=== PATIENT | male | born 2000 | race Caucasian/White ===

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

== ENCOUNTER 2020-12-09 11:19 | Emergency (ER) | payer OTHER, SELFPAY ==
[2020-12-09 11:21] VITALS: BP 128/83; PULSE 81; RESP 14; TEMP 35.7; O2SAT 97; BMI 33.0
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
--- NOTE | 2020-12-09 12:43 | RAD_ITS ---
STUDY: X-RAY - CERVICAL SPINE REASON FOR EXAM: Male, 20 years old. neck paib TECHNIQUE: view(s) of the cervical spine were obtained. COMPARISON: None FINDINGS: Normal anterior atlantoaxial articulation. Normal odontoid process. Normal cervical lordosis. Normal vertebral bodies and endplates. Normal disc space heights. Normal visualized intervertebral neuroforamina. The soft tissue structures are unremarkable. RAD/Cerv Spine 2 or 3 Views IMPRESSION: Normal x-ray examination of the visualized cervical spine. Electronically Signed: Siddhartha Hickman, at 13:07 EDT Tel , Service support ,
[2020-12-09 13:22] VITALS: RESP 18
== END 2020-12-09 13:23 | disposition home or self-care (01) ==
PROVIDERS: Emergency Provider Student in an Organized Health Care Education/Training Program; PCP Physician Assistant
DX: S16.1XXA Strain of muscle, fascia and tendon at neck level, initial encounter (principal); V49.9XXA Car occupant (driver) (passenger) injured in unspecified traffic accident, initial encounter
CPT/HCPCS: 72040; 99284

== ENCOUNTER 2021-10-28 16:13 | Emergency (ER) | payer OTHER, SELFPAY ==
[2021-10-28 16:16] VITALS: BP 158/102; PULSE 89; RESP 17; TEMP 37.2; O2SAT 96; BMI 38.5
--- NOTE | 2021-10-28 16:36 | EDS_ITS ---
HPI HPI - Psych History of Present Illness Chief Complaint: Suicidal Narrative Narrative: Patient with past medical history of depression and anxiety presents with hallucinations and suicidal ideation that have increased over time. He relates history that he has had hallucinations that are auditory in nature telling him to harm himself over the last 5 years, but never acted on them or told anyone about them. He went to see his primary care provider today and stated that he has had increased suicidal ideation. He states the worst was Monday, 5 days ago. He has made reported suicidal gestures by taking an unloaded gun and holding it to his head. He denies any previous psychiatric admissions. He lives at home with his parents and his fianc?e. He endorses decreased appetite, decreased sleep patterns, and endorses anhedonia. He is to play video games and enjoys it, but finds he is becoming bored with this past time. He presents because he needs help for his depression and suicidal ideation. PFSH PFS Home Medications cyclobenzaprine 10 mg PO TID PRN #20 tablet 12/09/20 [Rx Last Taken Unknown] Allergy/AdvReac Type Severity Reaction Status Date / Time No Known Allergies Allergy Verified 10/28/21 16:13 Surgical History History of open heart surgery Social History Smoking Status: Never smoker ROS ROS ED ROS Narrative Constitutional: No fever, no chills. HEENT: No sore throat. No neck pain. No loss of vision. No rhinorrhea. Cardiovascular: No chest pain. No palpitations. No pedal edema. Respiratory: No cough, no shortness of breath. Abdominal: No abdominal pain. No nausea. No vomiting. Genitourinary: No dysuria. No hematuria. Musculoskeletal: No myalgias. No arthralgias. Neurologic: No headaches. No dizziness. No lightheadedness. Skin: No rash. No change in color. Psychiatric: Positive depression. No anxiety. Positive hallucinations, auditory. Positive anhedonia. Decreased appetite. Decreased sleep/positive insomnia. EXAM Physical Exam Narrative Exam Narrative: Afebrile. Vital signs noted. HEENT: Normocephalic. Atraumatic. PERRL, EOMI. Neck soft and supple. No point tenderness or step off. Cardiovascular: Regular rate and rhythm. No murmurs, rubs, or gallops appreciated. Respiratory: No tachypnea. Lungs clear to auscultation bilaterally. Gastrointestinal: Abdomen soft, nontender, with normoactive bowel sounds. No rebound or guarding. Neurological: Awake. Alert. Nonfocal, nonlateralizing. Skin: No rash. Normal color. No pallor. Musculoskeletal: No pedal edema. Full range of motion extremities. Const Vital Signs: 10/28/21 16:16 10/28/21 19:13 Temperature 99.0 F Temperature Source Temporal Pulse Rate 89 78 Respiratory Rate 17 14 Blood Pressure 158/102 H 118/78 Blood Pressure Mean 120 91 Pulse Ox 96 100 Oxygen Delivery Method Room Air Room Air MDM MDM MDM Narrative Medical decision making narrative: Medical clearance labs were obtained. Given his auditory hallucinations, increasing depression, and suicidal gestures I do feel that he needs placement at a psychiatric facility. He has a normal CBC, BMP is also grossly unremarkable. Urine for drugs of abuse is negative. Alcohol level is also that he is medically cleared for evaluation. His EKG had demonstrated normal sinus rhythm at 83 bpm without ectopy or acute ST changes. After evaluation by case management/social work, it was felt that he required transfer to a psychiatric facility. He has been accepted at [facility] for psychiatry. He will be transferred in stable condition. Lab Data Attestation: I reviewed the patient's lab results. Labs: Laboratory Results - last 24 hr 10/28/21 10/28/21 10/28/21 16:40 16:55 16:55 WBC 10.2 RBC 5.49 Hgb 15.9 Hct 46.0 MCV 83.8 MCH 29.0 MCHC 34.6 RDW Std Deviation 40.5 RDW Coeff of Breanna 13.3 Plt Count 316 MPV 9.5 Immature Gran % (Auto) 0.800 Neut % (Auto) 60.8 Lymph % (Auto) 26.3 [place] % (Auto) 7.3 Eos % (Auto) 4.1 Baso % (Auto) 0.7 Absolute Neuts (auto) 6.2 Absolute Lymphs (auto) 2.67 Nucleated RBC % 0 Sodium 138 Potassium 3.8 Chloride 107 Carbon Dioxide 26.0 Anion Gap 5 BUN 12 Creatinine 0.82 Estim Creat Clear Calc 133.23 Est GFR (MDRD) Af Amer 152 Est GFR (MDRD) Non-Af 125 BUN/Creatinine Ratio 14.7 Glucose 89 Calcium 9.4 Urine Opiates Screen NEGATIVE Urine Methadone Screen NEGATIVE Ur Barbiturates Screen NEGATIVE Ur Phencyclidine Scrn NEGATIVE Ur Amphetamines Screen NEGATIVE MDMA (Ecstasy) Screen NEGATIVE U Benzodiazepines Scrn NEGATIVE Urine Cocaine Screen NEGATIVE U Cannabinoids Screen NEGATIVE Ur Drug Screen Comment Ethyl Alcohol 10/28/21 16:55 WBC RBC Hgb Hct MCV MCH MCHC RDW Std Deviation RDW Coeff of Breanna Plt Count MPV Immature Gran % (Auto) Neut % (Auto) Lymph % (Auto) [place] % (Auto) Eos % (Auto) Baso % (Auto) Absolute Neuts (auto) Absolute Lymphs (auto) Nucleated RBC % Sodium Potassium Chloride Carbon Dioxide Anion Gap BUN Creatinine Estim Creat Clear Calc Est GFR (MDRD) Af Amer Est GFR (MDRD) Non-Af BUN/Creatinine Ratio Glucose Calcium Urine Opiates Screen Urine Methadone Screen Ur Barbiturates Screen Ur Phencyclidine Scrn Ur Amphetamines Screen MDMA (Ecstasy) Screen U Benzodiazepines Scrn Urine Cocaine Screen U Cannabinoids Screen Ur Drug Screen Comment Ethyl Alcohol < 3.0 Discharge Plan Triage Chief Complaint: Suicidal ED Provider: Demetris Mora Dx/Rx/DC Orders Clinical Impression: Depression with suicidal ideation, Auditory hallucinations, Suicide gesture Prescriptions: No Action cyclobenzaprine 10 mg tablet 10 mg PO TID PRN (Reason: Muscle Spasm) Qty: 20 RF: 0 Primary Care Provider: Elly Mary Referrals: Elly Mary PA [Primary Care Provider] - Disposition Disposition: Psychiatric Hospital or Unit Discharge Location: [facility]
--- NOTE | 2021-10-28 16:36 | EKG12_ITS ---
Test Reason : Blood Pressure : / mmHG Vent. Rate : 083 BPM Atrial Rate : 083 BPM P-R Int : 154 ms QRS Dur : 094 ms QT Int : 350 ms P-R-T Axes : 023 058 025 degrees QTc Int : 411 ms Normal sinus rhythm Consider early repolarization Confirmed by KRISTINE QUILES, CHER ([id number]), editor dictionary JOSIE GARCIA ([id number]) on 11/01/2021 1:28:30 PM Referred By: АННА Confirmed By:CHER CARMONA MD
--- NOTE | 2021-10-28 16:42 | NURSING ---
NO OLD EKGS
[2021-10-28 17:06] LABS: Absolute Lymphocyte Count 2.67 X10^3/uL (0.83-4.51); Absolute Neutrophil Count 6.2 X10^3/uL (2.0-7.7); Basophil# 0.07 X10^3/uL; Basophil% 0.7 % (0-1); Eosinophil# 0.42 X10^3/uL; Eosinophils% 4.1 % (0-5); Hemoglobin 15.9 g/dL (13.0-16.5); Lymphocyte # 2.67 X10^3/ul (0.83-4.51); Lymphocyte % 26.3 % (19-41); Mean Corp Hgb Conc 34.6 g/dL (32-36); Mean Corpuscular Volume 83.8 fL (80-94); Mean Platelet Vol. 9.5 fl (6.2-12.0); Monocyte# 0.74 X10^3/uL; Monocyte% 7.3 % (0-10); NRBC Flagged by Analyzer 0 % (0-5); Neutrophil # 6.18 X10^3/uL (2.7-7.7); Neutrophil % 60.8 % (47-70); Platelet Count 316 K/mm3 (150-450); RBC Distribution Width CV 13.3 % (11.6-14.6); RBC Distribution Width SD 40.5 fl (35.1-43.9); Red Blood Count 5.49 M/mm3 (4.6-6.2); White Blood Count 10.2 K/mm3 (4.4-11.0)
[2021-10-28 17:19] LABS: Anion Gap 5 (5-15); BUN 12 mg/dL (7-18); BUN/Creat Ratio 14.7 RATIO (10-20); Calcium,Total 9.4 mg/dL (8.5-10.1); Chloride 107 mmol/L (98-107); Creatinine, Serum 0.82 mg/dL (0.70-1.30); EST Glomerular Filtration Rate 125 mL/min (>60); Est Glom Filt Rate - Afr Amer 152 mL/min (>60); Estimated Creatinine Clearance 133.23 ml/min; Glucose 89 mg/dL (74-106); Potassium 3.8 mmol/L (3.5-5.1); Sodium Level 138 mmol/L (136-145)
[2021-10-28 17:23] LABS: Amphetamine Urine VISTA NEGATIVE (<1000 ng/mL); Barbiturate Urine VISTA NEGATIVE (< 200 ng/mL); Benzodiazepine Urine VISTA NEGATIVE (< 200 ng/mL); Cocaine Urine VISTA NEGATIVE (< 300 ng/mL); Ecstacy Urine VISTA NEGATIVE (< 500 ng/mL); Methadone Urine VISTA NEGATIVE (< 300 ng/mL); PCP Urine VISTA NEGATIVE (< 25 ng/mL); THC Urine VISTA NEGATIVE (< 50 ng/mL); Vista UDS pH Range 4
[2021-10-28 17:56] LABS: Alcohol, Blood (Medical)-Serum < 3.0 mg/dL
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
[2021-10-28 19:13] VITALS: BP 118/78; PULSE 78; RESP 14; O2SAT 100
[2021-10-28 19:30] VITALS: BP 126/62; PULSE 74; RESP 14; TEMP 36.8; O2SAT 100
--- NOTE | 2021-10-28 20:07 | CM.ED ---
SW Note LYUDMILA faxed referral packet to [facility], [facility]. SW received call from Anamika at [facility]. Patient was accepted to the ABU Unit (Adult Behavioral Health Unit) by SIERRA Lim. RN to RN is [phone]. Copy of pink slip needs to be faxed to [facility]. LYUDMILA Natty faxed copy of pink slip to [facility] and the original went to the packet for patient to go to [facility]. SW provided update to patient and family. Mother inquired about visiting hours and drug abuse social worker indicated that due to covid there was no visiting hours. Mother inquired about updates and drug abuse social worker said that patient needs to sign KIRSTIE. Mother inquired about patient's insurance being in network and drug abuse social worker indicated that [facility] reviewed the insurance as it was on the face sheet and voiced that that they take patient's insurance. SW encouraged mother to call [place] if she had concerns. Mother inquired if she should get POA and SW said that it is not necessary at this time. SW advised patient's mother to ensure that guns are secure. Mother said that she is taking the guns to [place]. SW explained to patient that he and his therapist and psychiatrist, once he is in outpatient practice, can talk about the guns being reintroduced in his life. Patient and mother verbalized understanding. updated Antonieta, feeder worker power unit operator to schedule transport. Plan: [facility] Maryan MORRIS
== END 2021-10-28 20:15 ==
PROVIDERS: Emergency Provider Emergency Medicine; PCP Physician Assistant; Visit Provider Emergency Medicine
DX: F32.A Depression, unspecified (principal); R44.0 Auditory hallucinations; R45.851 Suicidal ideations; F41.9 Anxiety disorder, unspecified; Z20.822 Contact with and (suspected) exposure to COVID-19; Z79.899 Other long term (current) drug therapy
CPT/HCPCS: 80048; 80307; 82077; 85025; 87811; 93005; 99285

== ENCOUNTER → 2022-02-14 | Outpatient (CLI) | payer OTHER, SELFPAY | END | disposition home or self-care (01) | LOC: US 10:27 | PROVIDERS: PCP Physician Assistant; Referring Provider Physician Assistant; Visit Provider Physician Assistant | DX: R69 Illness, unspecified (principal) ==

== ENCOUNTER 2022-03-28 11:01 | Emergency (ER) | payer OTHER, SELFPAY ==
[2022-03-28 11:03] VITALS: BP 119/98; PULSE 104; RESP 24; TEMP 36.4; O2SAT 95; BMI 37.5
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
--- NOTE | 2022-03-28 11:45 | CM.ED ---
SW Note Referral Source: [facility] Ref[facility] Reason: Suicidal SW met with patient's mother. Mother voiced that she had told patient yesterday that this morning they needed to get up as they would have a full day at her [employer]. Patient was sullen and stated he did not want to do it this morning and was tired of not having money. Mother said that patient has not been taking his Meds for 3 weeks. Patient then was asked by his mom about what he would do if he had a normal job and patient was agitated with someone at work and patient told mom I will fucking kill him.. I will go to group home. Patient then got upset and began crying. Patient told his mother that the voices won't shut up and patient began to hit his head and then pulled out his pocket knife and gave it to his mom. Per mom patient told crisis that the voices won't leave me alone. Mother said that this morning patient was pounding his head and crying and shaking. Mother said that she was afraid that when patient got the pocketknife out he was going to harm himself or others. Mother called patient's psychologist, who is on vacation. Mother then called patient's psychiatric medication provider and he advised patient speak to crisis. When patient spoke to crisis they advised to bring him to the ED. Mother said that patient has been [place] for the last couple of weeks and per mom she and patient have had discussions about the voices. Mother said that the voices were telling him to kill himself and Sea was telling him to kill himself. SW spoke to patient private. Patient spoke with his eyes closed. Patient said the voices in my head won't stop and indicated that the voices have gotten more intense for the past 2 hours. Patient that he generally hears voices but the voices have gotten worse. Patient said that the voices tell him to inflict more self harm on himself. Patient said that the voices are telling me to hurt anybody and anything and myself. Patient said that after he had an argument with his mom and dad the voices intensified. SW asked patient if he wants to and patient said no but the other half of me wants to. SW asked patient if he had plans regarding suicide and patient said He has multiple plans and I can do it with anything in the room. SW asked who patient was he was and patient said Sea, the other 1/2 of me. Patient said that he has not sleep any for the past 3 days. Patient said that he has been up all night. Patient said that his appetite is the same. Patient said that he is able to shower and do his ADL's. Marital History: Single, with girlfriend of 8 years Identified Gender: Male Sexual Orientation: Heterosexual Living Situation: With mom and dad in the home in [facility] Support: Patient said that his only support is his mom and no other. History: None Education and Employment History: Patient graduated from [employer] and had an IEP due to dyslexia. Patient graduated from the [employer] with specialization in Electronics. Patient currently works with his mom at an [employer]. Patient previously worked at [employer] Mental Health Treatment and History: Patient currently sees psychologist Dr. Hodge at [facility] for counseling. [facility]. Patient has one psych hospitalization, October 2021 at [facility]. Patient was at [facility] for 5 days. Patient said that he generally sees Dr. Hodge every [address] Hodge is currently on vacation. Patient reports he stopped taking his medication for 4 weeks and when asked why patient said I don't know. Triggers and Stressors: Patient was asked about triggers and stressors and patient said nothing I can think of.. the big stressor this morning was the argument with my mom and dad. Mother said a recent trigger was patient's brother coming home in February and the brother and sister telling him that he should break up with his current girlfriend. Coping Skills: Play video games Abuse Issues: Denied Substance Abuse: Patient reports drinking 1 wine cooler last night. He reports drinking alcohol not often and occasionally. SW asked how often patient uses occasionally and he said 1-4 times a month. Risk to Self and Others Patient voices he is suicidal. Patient said that he has multiple plans to kill himself. SW asked about patient's previous attempts and patient said one time I had a knife to my throat and another time a gun to my head but I was able to stop. Patient most recently, October 2021, had a gun to his head. Patient was asked if he wants to hurt or kill anyone and patient saidyes, that is why I am trying to keep my eyes closed. SW asked who patient wants to kill and he voiced no one in particular and I don't want to kill anybody but they want me to kill or injure Patient voices that when the voices are rampant... I hit myself in the head. Patient denied violence to others or objects. Orientation x4 Memory: Good Appearance/General Behavior: Clean but disheveled Mood and Affect: Depressed with flat mood and affect Communication Pattern: Responds to questions Thought Process: Patient voices auditory hallucinations. General intellectual Functioning: Average Judgement: Poor Insight: Poor SW consulted with MD Mora and he concurs with this documentation writer that patient needs in patient psych hospitalization for medication management and crisis stabilization. Plan: Inpatient psych Maryan Mitchell MSWLISWS
--- NOTE | 2022-03-28 11:46 | EDS_ITS ---
HPI HPI - Psych History of Present Illness Chief Complaint: Mental Health Narrative Narrative: Patient with past psychiatric disorder of personality disorder, depression, takes multiple medications, presents with his parents because of anger issues, increasing auditory hallucinations that are telling him to kill himself, and to hurt other people. Patient denies any insomnia or hypersomnolence, normal appetite, but states that over the last week the voices are intensifying, and telling him to hurt more people. They are also telling him to commit suicide. He had a psychiatric admission earlier this year. He followed up with his psychiatrist last week, and his mother states that they tried to call today, but his psychiatrist is out of town. They were able to speak with the psychiatrist that does write some of his medications who told him to call crisis and the counseling center, who in turn told him to report to the emergency department for evaluation. He presents for medical clearance. Mother states that she had tried to call the psychiatrist because he was very frustrated, hitting his head, and also crying more. PFSH PFSH Home Medications cyclobenzaprine 10 mg tablet 10 mg PO TID PRN Muscle Spasm #20 TABLETS 12/09/20 [Rx Last Taken Unknown] aripiprazole 5 mg tablet 5 mg PO DAILY 03/28/22 [History Last Taken Unknown] hydroxyzine pamoate 50 mg capsule 50 mg PO TID PRN Anxiety 03/28/22 [History Last Taken Unknown] lisinopril 5 mg tablet 5 mg PO DAILY 03/28/22 [History Last Taken Unknown] sertraline 150 mg capsule 150 mg PO DAILY 03/28/22 [History Last Taken Unknown] trazodone 50 mg tablet 50 mg PO QHS 03/28/22 [History Last Taken Unknown] venlafaxine 75 mg capsule,extended release 24 hr (Effexor XR) 75 mg PO DAILY 03/28/22 [History Last Taken Unknown] Allergy/AdvReac Type Severity Reaction Status Date / Time No Known Allergies Allergy Verified 10/28/21 16:13 Surgical History History of open heart surgery Social History Smoking Status: Never smoker ROS ROS ED ROS Narrative Constitutional: No fever, no chills. HEENT: No sore throat. No neck pain. No loss of vision. No rhinorrhea. Cardiovascular: No chest pain. No palpitations. No pedal edema. Respiratory: No cough, no shortness of breath. Abdominal: No abdominal pain. No nausea. No vomiting. Genitourinary: No dysuria. No hematuria. Musculoskeletal: No myalgias. No arthralgias. Neurologic: No headaches. No dizziness. No lightheadedness. Skin: No rash. No change in color. Psychiatric: Positive depression. No anxiety. Anger outburst. Positive auditory hallucinations that are telling him to kill himself and hurt other people. EXAM Physical Exam Narrative Exam Narrative: Afebrile. Vital signs noted. HEENT: Normocephalic. Atraumatic. PERRL, EOMI. Neck soft and supple. No point tenderness or step off. Cardiovascular: Regular rate and rhythm. No murmurs, rubs, or gallops appreciated. Respiratory: No tachypnea. Lungs clear to auscultation bilaterally. Gastrointestinal: Abdomen soft, nontender, with normoactive bowel sounds. No rebound or guarding. Neurological: Awake. Alert. Nonfocal, nonlateralizing. Skin: No rash. Normal color. No pallor. Musculoskeletal: No pedal edema. Full range of motion extremities. Psychiatric: Flat affect. Cooperative with examination and answering questions in short answers. Keeps eyes closed during examination for avoidance. No noted internal stimulation. Const Vital Signs: 03/28/22 11:03 Temperature 97.5 F L Temperature Source Temporal Pulse Rate 104 H Respiratory Rate 24 H Blood Pressure 119/98 H Blood Pressure Mean 105 Pulse Ox 95 Oxygen Delivery Method Room Air MDM MDM MDM Narrative Medical decision making narrative: Medical clearance labs were obtained. Patient had already been discussed with case management who is already recommending placement for the patient. Urine drug screen and ethyl alcohol are negative. Screening labs are grossly unremarkable. At this point in time, I do feel he is medically cleared for placement. He has been accepted at [facility]. Disposition is transfer to psychiatric facility in stable condition. Lab Data Attestation: I reviewed the patient's lab results. Labs: Laboratory Results - last 24 hr 03/28/22 03/28/22 03/28/22 11:51 11:51 11:51 WBC 9.7 RBC 5.01 Hgb 14.8 Hct 42.7 MCV 85.2 MCH 29.5 MCHC 34.7 RDW Std Deviation 42.0 RDW Coeff of Breanna 13.7 Plt Count 284 MPV 9.4 Immature Gran % (Auto) 0.700 Neut % (Auto) 60.2 Lymph % (Auto) 27.8 Tucker % (Auto) 6.5 Eos % (Auto) 4.0 Baso % (Auto) 0.8 Absolute Neuts (auto) 5.8 Absolute Lymphs (auto) 2.70 Nucleated RBC % 0 Sodium 140 Potassium 4.0 Chloride 107 Carbon Dioxide 25.0 Anion Gap 8 BUN 12 Creatinine 0.78 Estim Creat Clear Calc 138.89 Est GFR (MDRD) Af Amer 160 Est GFR (MDRD) Non-Af 132 BUN/Creatinine Ratio 15.4 Glucose 88 Calcium 8.8 Urine Opiates Screen Urine Methadone Screen Ur Barbiturates Screen Ur Phencyclidine Scrn Ur Amphetamines Screen MDMA (Ecstasy) Screen U Benzodiazepines Scrn Urine Cocaine Screen U Cannabinoids Screen Ur Drug Screen Comment Ethyl Alcohol < 3.0 03/28/22 11:51 WBC RBC Hgb Hct MCV MCH MCHC RDW Std Deviation RDW Coeff of Breanna Plt Count MPV Immature Gran % (Auto) Neut % (Auto) Lymph % (Auto) Tucker % (Auto) Eos % (Auto) Baso % (Auto) Absolute Neuts (auto) Absolute Lymphs (auto) Nucleated RBC % Sodium Potassium Chloride Carbon Dioxide Anion Gap BUN Creatinine Estim Creat Clear Calc Est GFR (MDRD) Af Amer Est GFR (MDRD) Non-Af BUN/Creatinine Ratio Glucose Calcium Urine Opiates Screen NEGATIVE Urine Methadone Screen NEGATIVE Ur Barbiturates Screen NEGATIVE Ur Phencyclidine Scrn NEGATIVE Ur Amphetamines Screen NEGATIVE MDMA (Ecstasy) Screen NEGATIVE U Benzodiazepines Scrn NEGATIVE Urine Cocaine Screen NEGATIVE U Cannabinoids Screen NEGATIVE Ur Drug Screen Comment Ethyl Alcohol Discharge Plan Triage Chief Complaint: Mental Health Other Complaint: Suicidal ED Provider: Demetris Mora Dx/Rx/DC Orders Clinical Impression: Psychosis, Suicidal ideation, Homicidal ideation, Depression, Auditory hallucinations, Anger Prescriptions: No Action cyclobenzaprine 10 mg tablet 10 mg PO TID PRN (Reason: Muscle Spasm) Qty: 20 0RF venlafaxine [Effexor XR] 75 mg Capsule,Extended Release 24hr 75 mg PO DAILY trazodone 50 mg Tablet 50 mg PO QHS hydroxyzine pamoate 50 mg Capsule 50 mg PO TID PRN (Reason: Anxiety) lisinopril 5 mg Tablet 5 mg PO DAILY aripiprazole 5 mg Tablet 5 mg PO DAILY sertraline 150 mg Capsule 150 mg PO DAILY Primary Care Provider: Elly Mary Referrals: Elly Mary, MIRACLE [Primary Care Provider] - Disposition Disposition: Psychiatric Hospital [facility]
[2022-03-28 12:14] LABS: Absolute Neutrophil Count 5.8 X10^3/uL (2.0-7.7); Basophil# 0.08 X10^3/uL; Basophil% 0.8 % (0-1); Eosinophil# 0.39 X10^3/uL; Hematocrit 42.7 % (40-54); Hemoglobin 14.8 g/dL (13.0-16.5); Lymphocyte % 27.8 % (19-41); Mean Corp Hgb Conc 34.7 g/dL (32-36); Mean Corpuscular Hgb 29.5 pg (27.0-32.0); Mean Corpuscular Volume 85.2 fL (80-94); Mean Platelet Vol. 9.4 fl (6.2-12.0); Monocyte# 0.63 X10^3/uL; Monocyte% 6.5 % (0-10); NRBC Flagged by Analyzer 0 % (0-5); Neutrophil # 5.83 X10^3/uL (2.7-7.7); Neutrophil % 60.2 % (47-70); Platelet Count 284 K/mm3 (150-450); RBC Distribution Width CV 13.7 % (11.6-14.6); Red Blood Count 5.01 M/mm3 (4.6-6.2); White Blood Count 9.7 K/mm3 (4.4-11.0)
[2022-03-28 12:27] LABS: Anion Gap 8 (5-15); BUN 12 mg/dL (7-18); BUN/Creat Ratio 15.4 RATIO (10-20); Calcium,Total 8.8 mg/dL (8.5-10.1); Chloride 107 mmol/L (98-107); Creatinine, Serum 0.78 mg/dL (0.70-1.30); EST Glomerular Filtration Rate 132 mL/min (>60); Est Glom Filt Rate - Afr Amer 160 mL/min (>60); Estimated Creatinine Clearance 138.89 ml/min; Glucose 88 mg/dL (74-106); Sodium Level 140 mmol/L (136-145)
[2022-03-28 12:37] LABS: Amphetamine Urine VISTA NEGATIVE (<1000 ng/mL); Barbiturate Urine VISTA NEGATIVE (< 200 ng/mL); Benzodiazepine Urine VISTA NEGATIVE (< 200 ng/mL); Cocaine Urine VISTA NEGATIVE (< 300 ng/mL); Ecstacy Urine VISTA NEGATIVE (< 500 ng/mL); Methadone Urine VISTA NEGATIVE (< 300 ng/mL); PCP Urine VISTA NEGATIVE (< 25 ng/mL); THC Urine VISTA NEGATIVE (< 50 ng/mL); Vista UDS pH Range 5
[2022-03-28 12:43] LABS: Alcohol, Blood (Medical)-Serum < 3.0 mg/dL
--- NOTE | 2022-03-28 14:05 | CM.ED ---
LYUDMILA faxed referral to [facility] for review. Porfirio from [facility] called and inquired if patient has an intellectual disability or ASD. LYUDMILA called Ella at Crisis. Patient's diagnosis is Dysthymia Disorder with history of alcohol abuse. Patient was diagnosed with Major Depressive Disorder current, severe with psychotic features, unspecified adjustment disorder and unspecified personality disorder and alcohol abuse. Maryan MORRIS
--- NOTE | 2022-03-28 14:20 | ED.RN ---
Mother updated on plan of care and notified that transport will be here in approx. 30 minutes.
--- NOTE | 2022-03-28 14:31 | ED.RN ---
Report given to [facility]
--- NOTE | 2022-03-28 14:39 | CM.ED ---
Addendum entered by Maryan Mitchell 03/28/22 18:52: LYUDMILA called Bita at Crisis and updated her that patient had gone to [facility] for inpatient psych. Maryan MORRIS Original Note: Porfirio from [facility] called. Accepting MD is Татьяна. Patient is going to dual diagnosis unit. RN to RN is [phone]. LYUDMILA updated patient he is going to [facility]. RN will update patient's family. Maryan MORRIS
== END 2022-03-28 15:01 ==
PROVIDERS: Emergency Provider Emergency Medicine; PCP Physician Assistant; Visit Provider Emergency Medicine
DX: F29 Unspecified psychosis not due to a substance or known physiological condition (principal); F32.A Depression, unspecified; R45.850 Homicidal ideations; R45.851 Suicidal ideations; R45.4 Irritability and anger; Z79.899 Other long term (current) drug therapy
CPT/HCPCS: 80048; 80307; 82077; 85025; 87811; 99283

== ENCOUNTER → 2022-06-07 | Outpatient (CLI) | payer OTHER, SELFPAY | END | disposition home or self-care (01) | PROVIDERS: PCP Physician Assistant; Visit Provider Physician Assistant | DX: R06.83 Snoring (principal); G25.3 Myoclonus; R40.0 Somnolence | CPT/HCPCS: 95810 ==

== ENCOUNTER 2023-11-01 19:09 | Emergency (ER) | payer OTHER, SELFPAY ==
[2023-11-01 19:09] VITALS: BP 129/88; PULSE 87; PULSE 88; RESP 17; TEMP 36; O2SAT 94; O2SAT 95
== END 2023-11-01 20:20 | disposition left against medical advice (07) ==
LOC: ED 20:22
PROVIDERS: PCP Physician Assistant
DX: R69 Illness, unspecified (principal); Z53.21 Procedure and treatment not carried out due to patient leaving prior to being seen by health care provider